=== PATIENT | female | born 1955 | race Caucasian/White ===

== ENCOUNTER 2024-04-05 07:49 | Emergency (ER) | payer MEDICARE, BC ==
[~2024-04-05] VITALS: Ht 162.6 cm; Wt 66.8 kg
[2024-04-05 07:54] VITALS: BP 154/91; PULSE 61; RESP 18; TEMP 98.5; O2SAT 97
== END 2024-04-05 09:52 | disposition home or self-care (01) ==
LOC: ER 07:50
DX: J06.9 Acute upper respiratory infection, unspecified (principal); I48.91 Unspecified atrial fibrillation; Z88.2 Allergy status to sulfonamides; Z20.822 Contact with and (suspected) exposure to COVID-19
CPT/HCPCS: 36415; 71045; 87502; 87503; 87811; 99284